=== PATIENT | male | born 1980 | race Caucasian/White ===

== ENCOUNTER → 2021-04-22 | Outpatient (CLI) | payer OTHER ==
--- NOTE | 2021-04-22 16:55 | REP ---
INDICATION: CHRONIC SINUSITIS. COMPARISON: None. TECHNIQUE: Contiguous 2 mm thick axial projection images were obtained through the paranasal sinuses. 2D sagittal and coronal reconstructions were performed. FINDINGS: The frontal sinuses are partially opacified. The frontal ethmoidal recesses are obstructed. There are multiple opacified ethmoidal air cells bilaterally. Status post partial ethmoidectomy on the left. The sphenoethmoidal recesses are obstructed. There is almost complete opacification of the sphenoid sinuses. There are large meatotomy defects bilaterally. There is marked thickening of the nasal mucosa bilaterally with almost complete obstruction of the meatotomies. There is mucoperiosteal thickening of both maxillary sinuses. There is a 3.9 cm in thickness mucous retention cyst or polyp in the left maxillary sinus. There is a 1.6 cm in thickness mucous retention cyst or polyp in the right maxillary sinus. The mastoid air cells and the external, middle and inner ears are normal. The visualized soft tissues of the face have a normal unenhanced appearance. The intraorbital contents are normal. The visualized intracranial contents are unremarkable. IMPRESSION: 1. Severe larsen sinusitis. 2. Status post left partial ethmoidectomy and bilateral meatotomy. 3. Severe rhinitis. 4. Other findings as noted. <Electronically signed by Joshua Smith > 04/22/21 [id number]
== END ==
LOC: M RAD 15:44
PROVIDERS: ATTEND Physician Assistant
DX: J32.9 Chronic sinusitis, unspecified (principal)

== ENCOUNTER → 2021-06-13 | Outpatient (CLI) | payer OTHER ==
[~2021-06-13] MED LIST: BENA25CA4 PO
== END ==
LOC: M LABSMTC 12:09
PROVIDERS: ATTEND Anesthesiology
DX: Z01.818 Encounter for other preprocedural examination (principal); Z11.52 Encounter for screening for COVID-19

== ENCOUNTER 2021-06-17 11:46 | Day surgery (SDC) | payer OTHER ==
[~2021-06-17] VITALS: Ht 185.4 cm; Wt 92.5 kg
[2021-06-17] MEDS ORDERED: PRED10TA2 (12:09)
[2021-06-17] MEDS ORDERED: fentaNYL 250 MCG/5 ML INJECTION (J3010) As Ordered ONE (12:13)
[2021-06-17] MEDS ORDERED: LIDOCAINE 2% 100MG/5ML SDV (FOR ANES.) As Ordered ONE (12:14)
[2021-06-17] MEDS ORDERED: dexameTHASONE 4 MG/ML 1ML VIAL (J1100 PER 1MG) As Ordered ONE (12:14)
[2021-06-17] MEDS ORDERED: MIDAZOLAM INJ 2MG/2ML VIAL (J2250 PER 1MG) As Ordered ONE (12:14)
[2021-06-17] MEDS ORDERED: ROCURONIUM BROMIDE 50 MG/5 ML VIAL As Ordered ONE ×3 (12:14→15:21)
[2021-06-17] MEDS ORDERED: propofoL 200 MG/20 ML VIAL As Ordered ONE (12:14)
[2021-06-17] MEDS ORDERED: ONDANSETRON 4MG/2ML VIAL As Ordered ONE (12:14)
[2021-06-17] MEDS ORDERED: LACRILUBE (AKWA TEARS) OPHTH OINT 3.5 GM As Ordered ONE (12:55)
[2021-06-17] MEDS ORDERED: COCAINE 4% 4ML NASAL SOLUTION BTL As Ordered ONE (13:01)
[2021-06-17] MEDS ORDERED: OXYMETAZOLINE 0.05% NASAL SPRAY (AFRIN) As Ordered ONE ×2 (13:01→13:54)
[2021-06-17] MEDS ORDERED: METHYLENE BLUE 0.5% (5MG/ML) 10 ML AMP (PROVAYBLUE) As Ordered ONE (13:01)
[2021-06-17] MEDS ORDERED: LIDOCAINE W/EPINEPHRINE 1% 20ML VIAL As Ordered ONE (13:01)
[2021-06-17] MEDS ORDERED: ACETAMINOPHEN 1000MG 100ML IV BTL (OFIRMEV) (J0131 PER 10MG) As Ordered ONE (13:50)
[2021-06-17] MEDS ORDERED: ePHEDrine SULFATE 25 MG/5 ML(5MG/ML) SYRINGE As Ordered ONE (13:55)
[2021-06-17] MEDS ORDERED: SUGAMMADEX SODIUM 500 MG/5 ML VIAL (BRIDION) As Ordered ONE (14:11)
[2021-06-17] MEDS ORDERED: LABETALOL 100MG/20ML VIAL As Ordered ONE (14:28)
[2021-06-17] MEDS ORDERED: LIDOCAINE 2% 5ML JELLY UROJET As Ordered ONE (15:55)
[2021-06-17] MEDS ORDERED: fentaNYL 100 MCG/2 ML INJECTION (J3010) As Ordered ONE (16:15)
[2021-06-17] MEDS ORDERED: LR 1,000 ML IV SCH ×2 (16:30)
[2021-06-17] MEDS ORDERED: ONDANSETRON 4MG/2ML VIAL IV PRN ×2 (16:30→16:35)
[2021-06-17] MEDS ORDERED: fentaNYL 100 MCG/2 ML INJECTION (J3010) IV PRN (16:30)
[2021-06-17] MEDS ORDERED: ANEXSIA, NORCO 7.5MG/325MG TABLET(HYDROCODONE/APAP) PO PRN (16:35)
[2021-06-17] MEDS: oxyCODONE 5MG TAB PO PRN ×2 (16:39→17:14)
[2021-06-17 17:00] VITALS: BP 144/80
== END 2021-06-17 17:40 | disposition home or self-care (01) ==
LOC: M SDC 11:46
PROVIDERS: ATTEND Otolaryngology
DX: J32.9 Chronic sinusitis, unspecified (principal); J34.2 Deviated nasal septum; J34.3 Hypertrophy of nasal turbinates; F17.218 Nicotine dependence, cigarettes, with other nicotine-induced disorders; F12.10 Cannabis abuse, uncomplicated
CPT/HCPCS: 30140; 30520; 31255; 31267; 31287; 87426; 88305; C9046; J0131; J1100; J2250; J2405; J3010; Q9968

== ENCOUNTER 2021-12-24 11:11 | Inpatient (IN) | payer OTHER, SELFPAY ==
[~2021-12-24] VITALS: Ht 185.4 cm; Wt 90.9 kg
[2021-12-24] MEDS: NICOTINE 21MG/24HR 1 EA TRANSDERMAL TD SCH (09:00)
[~2021-12-24 11:11] MED LIST changes: +PRED10TA2
[2021-12-24 11:42] LABS: HEMOGLOBIN 15.6 g/dl (13.5-17.5); MEAN CORPUSCULAR HEMOGLOBIN 31.6 pg (27.0-33.0); MEAN CORPUSCULAR HGB CONC 34.7 g/dl (32.0-36.5); MEAN CORPUSCULAR VOLUME 91.3 fl (80.0-96.0); PLATELET COUNT, AUTOMATED 254 10^3/uL (150-450); RED BLOOD COUNT 4.93 10^6/uL (4.30-6.10); WHITE BLOOD COUNT 9.8 10^3/uL (4.0-10.0)
[2021-12-24 12:05] LABS: AMPHETAMINES LEVEL URINE NEGATIVE (NEGATIVE); BARBITURATES URINE NEGATIVE (NEGATIVE); BENZODIAZEPINES URINE NEGATIVE (NEGATIVE); CANNABINOIDS URINE POSITIVE (NEGATIVE); COCAINE METABOLITE URINE POSITIVE (NEGATIVE); METHADONE URINE NEGATIVE (NEGATIVE); OPIATES URINE NEGATIVE (NEGATIVE); PHENCYCLIDINE URINE NEGATIVE (NEGATIVE)
[2021-12-24 12:16] LABS: RSV AMPLIFICATION NEGATIVE (NEGATIVE)
[2021-12-24 12:21] LABS: ACETAMINOPHEN LEVEL < 2.0 UG/ML (10.0-30.0); ALT/SGPT 36 U/L (12-78); BILIRUBIN,DIRECT 0.1 MG/DL (0.0-0.2); BILIRUBIN,TOTAL 0.6 MG/DL (0.2-1.0); BLOOD UREA NITROGEN 12 MG/DL (7-18); CALCIUM LEVEL 9.1 MG/DL (8.5-10.1); CARBON DIOXIDE LEVEL 24 MEQ/L (21-32); CHLORIDE LEVEL 113 MEQ/L (98-107); CREATININE FOR GFR 1.04 MG/DL (0.70-1.30); ETHYL ALCOHOL (ETHANOL) < 0.003 % (0.000-0.010); GLOMERULAR FILTRATION RATE > 60.0 (>60); GLUCOSE, FASTING 108 MG/DL (70-100); SALICYLATE LEVEL 3.3 MG/DL (5.0-30.0); SODIUM LEVEL 144 MEQ/L (136-145); THYROID STIMULATING HORMONE 0.782 uIU/ML (0.358-3.740); TOTAL PROTEIN 7.4 GM/DL (6.4-8.2)
[2021-12-24] MEDS ORDERED: APAP325T4 PO (17:12)
[2021-12-24] MEDS ORDERED: CLAR5TAB7 PO (17:12)
[2021-12-24] MEDS ORDERED: HOME MED LIST COMPLETE! XX SCH (17:15)
[2021-12-24] MEDS ORDERED: MAALOX 30 ML SUSP *UDC PO PRN (17:35)
[2021-12-24] MEDS ORDERED: MOM 30ML SUSPENSION UDC PO PRN (17:35)
[2021-12-24] MEDS ORDERED: ACETAMINOPHEN TAB 650MG DOSE (2X325MG) PO PRN (17:35)
[2021-12-24] MEDS ORDERED: traZODone 50 MG TAB PO PRN (17:35)
[2021-12-24] MEDS: diphenhydrAMINE 50MG CAP PO SCH (20:22)
[2021-12-25 06:46] VITALS: BP 120/78
[2021-12-25] MEDS: diphenhydrAMINE 50MG CAP PO SCH ×2 (08:20→20:18)
[2021-12-25] MEDS: NICOTINE 21MG/24HR 1 EA TRANSDERMAL TD SCH (08:21)
[2021-12-25] MEDS: SERTRALINE HCL 50 MG TAB PO SCH (12:50)
[2021-12-25 18:00] VITALS: BP 153/84
[2021-12-26 07:05] VITALS: BP 111/73
[2021-12-26] MEDS: diphenhydrAMINE 50MG CAP PO SCH ×2 (08:01→20:18)
[2021-12-26] MEDS: SERTRALINE HCL 50 MG TAB PO SCH (08:01)
[2021-12-26] MEDS: NICOTINE 21MG/24HR 1 EA TRANSDERMAL TD SCH (08:03)
[2021-12-26] MEDS ORDERED: diphenhydrAMINE 50MG CAP PO ONE (15:45)
[2021-12-26 18:54] VITALS: BP 131/85
[2021-12-26] MEDS: traZODone 100 MG TAB PO PRN (20:18)
[2021-12-27] MEDS: diphenhydrAMINE 50MG CAP PO SCH ×2 (05:20→20:06)
[2021-12-27 06:15] VITALS: BP 113/62
[2021-12-27] MEDS: NICOTINE 21MG/24HR 1 EA TRANSDERMAL TD SCH (08:28)
[2021-12-27] MEDS: SERTRALINE HCL 50 MG TAB PO SCH (08:28)
[2021-12-27] MEDS: LORazepam 1 MG TAB PO PRN ×2 (15:15→22:25)
[2021-12-27 18:50] VITALS: BP 139/88
[2021-12-27] MEDS: traZODone 100 MG TAB PO PRN (20:06)
[2021-12-28] MEDS: diphenhydrAMINE 50MG CAP PO SCH ×2 (05:54→20:25)
[2021-12-28 07:08] VITALS: BP 119/71
[2021-12-28] MEDS: NICOTINE 21MG/24HR 1 EA TRANSDERMAL TD SCH (08:24)
[2021-12-28] MEDS: SERTRALINE HCL 50 MG TAB PO SCH (08:24)
[2021-12-28] MEDS: LORazepam 1 MG TAB PO PRN ×2 (08:25→20:26)
[2021-12-28 17:56] VITALS: BP 140/68
[2021-12-28] MEDS: traZODone 100 MG TAB PO PRN (20:25)
[2021-12-29] MEDS: diphenhydrAMINE 50MG CAP PO SCH ×2 (05:50→20:34)
[2021-12-29 06:27] VITALS: BP 131/85
[2021-12-29] MEDS: SERTRALINE HCL 50 MG TAB PO SCH (08:37)
[2021-12-29] MEDS: NICOTINE 21MG/24HR 1 EA TRANSDERMAL TD SCH (08:38)
[2021-12-29] MEDS: LORazepam 1 MG TAB PO PRN ×2 (08:38→20:36)
[2021-12-29 18:00] VITALS: BP 158/93
[2021-12-29] MEDS: traZODone 100 MG TAB PO PRN (20:34)
[2021-12-30] MEDS: diphenhydrAMINE 50MG CAP PO SCH (05:39)
[2021-12-30 06:28] VITALS: BP 132/84
[2021-12-30] MEDS: SERTRALINE HCL 50 MG TAB PO SCH (08:19)
[2021-12-30] MEDS: NICOTINE 21MG/24HR 1 EA TRANSDERMAL TD SCH (08:19)
[2021-12-30] MEDS ORDERED: LORazepam 0.5 MG TAB PO PRN (12:40)
[2021-12-30] MEDS ORDERED: NICO21PAT TD (15:22)
[2021-12-30] MEDS ORDERED: SERT50TA29 PO (15:22)
[2021-12-30] MEDS ORDERED: ATIV1TAB10 PO (15:22)
[2021-12-30] MEDS ORDERED: TRAZ-257 PO (18:45)
== END 2021-12-30 16:24 | disposition home or self-care (01) | DRG 754 ==
LOC: M ED 11:11 → M ED INP 17:34 → M PSY 17:58
PROVIDERS: ADMIT Student in an Organized Health Care Education/Training Program; ATTEND Student in an Organized Health Care Education/Training Program
DX: F32.A Depression, unspecified (principal); R45.851 Suicidal ideations; F17.210 Nicotine dependence, cigarettes, uncomplicated; Z79.899 Other long term (current) drug therapy; M79.89 Other specified soft tissue disorders; F32.9 Major depressive disorder, single episode, unspecified

== ENCOUNTER → 2022-02-18 | Outpatient (CLI) | payer OTHER ==
[~2022-02-18] MED LIST changes: +APAP325T4 PO; +ATIV1TAB10 PO; +CLAR5TAB7 PO; +NICO21PAT TD; +SERT50TA29 PO; +TRAZ-257 PO
[2022-02-18 12:33] LABS: BASO # 0.1 10^3/uL (0.0-0.2); BASO % 0.5 % (0.0-1.0); EOS # 0.3 10^3/uL (0.0-0.5); EOS % 3.1 % (0.0-3.0); HEMATOCRIT 44.2 % (42.0-52.0); HEMOGLOBIN 14.4 g/dl (13.5-17.5); LYMPH # 2.6 10^3/uL (1.5-5.0); LYMPH % 26.8 % (24.0-44.0); MEAN CORPUSCULAR HEMOGLOBIN 30.6 pg (27.0-33.0); MEAN CORPUSCULAR HGB CONC 32.6 g/dl (32.0-36.5); MEAN CORPUSCULAR VOLUME 93.8 fl (80.0-96.0); MONO # 0.7 10^3/uL (0.0-0.8); MONO % 7.5 % (2.0-8.0); NEUTROPHILS # 6.1 10^3/uL (1.5-8.5); NEUTROPHILS % 61.8 % (36.0-66.0); PLATELET COUNT, AUTOMATED 238 10^3/uL (150-450); RED BLOOD COUNT 4.71 10^6/uL (4.30-6.10); WHITE BLOOD COUNT 9.8 10^3/uL (4.0-10.0)
[2022-02-18 13:04] LABS: ALBUMIN 3.9 GM/DL (3.2-5.2); ALT/SGPT 74 U/L (12-78); BILIRUBIN,TOTAL 0.3 MG/DL (0.2-1.0); BLOOD UREA NITROGEN 10 MG/DL (7-18); CARBON DIOXIDE LEVEL 29 MEQ/L (21-32); CHLORIDE LEVEL 106 MEQ/L (98-107); CREATININE FOR GFR 0.76 MG/DL (0.70-1.30); ERYTHROCYTE SEDIMENTATION RATE 4 mm/hr (0-15); GLOMERULAR FILTRATION RATE > 60.0 (>60); GLUCOSE, FASTING 93 MG/DL (70-100); POTASSIUM SERUM 4.2 MEQ/L (3.5-5.1); RHEUMATOID FACTOR QUANT < 10.0 IU/ML (<15.0); SODIUM LEVEL 137 MEQ/L (136-145); THYROXINE (T4) 6.9 UG/DL (4.5-12.0); TOTAL PROTEIN 6.9 GM/DL (6.4-8.2)
[2022-02-18 13:42] LABS: THYROID PEROXIDASE ANTIBODY < 28.0 U/ML (<60.0)
== END ==
LOC: M LAB 11:20
PROVIDERS: ATTEND Allergy & Immunology Allergy
DX: L50.1 Idiopathic urticaria (principal)

== ENCOUNTER → 2022-11-18 | Outpatient (CLI) | payer OTHER ==
[2022-11-18 14:42] LABS: BASO # 0.1 10^3/uL (0.0-0.2); BASO % 0.5 % (0.0-1.0); EOS # 0.3 10^3/uL (0.0-0.5); HEMATOCRIT 43.1 % (42.0-52.0); HEMOGLOBIN 14.2 g/dl (13.5-17.5); LYMPH # 2.2 10^3/uL (1.5-5.0); LYMPH % 22.7 % (24.0-44.0); MEAN CORPUSCULAR HEMOGLOBIN 30.6 pg (27.0-33.0); MEAN CORPUSCULAR HGB CONC 32.9 g/dl (32.0-36.5); MEAN CORPUSCULAR VOLUME 92.9 fl (80.0-96.0); MONO # 0.6 10^3/uL (0.0-0.8); MONO % 5.9 % (2.0-8.0); NEUTROPHILS # 6.5 10^3/uL (1.5-8.5); NEUTROPHILS % 67.7 % (36.0-66.0); PLATELET COUNT, AUTOMATED 247 10^3/uL (150-450); RED BLOOD COUNT 4.64 10^6/uL (4.30-6.10); WHITE BLOOD COUNT 9.6 10^3/uL (4.0-10.0)
[2022-11-18 15:13] LABS: APPEARANCE, URINE HAZY (CLEAR); BACTERIA, URINE AUTO NEGATIVE (NEGATIVE); BILIRUBIN, URINE AUTO NEGATIVE (NEGATIVE); BLOOD, URINE BLOOD NEGATIVE (NEGATIVE); COLOR, URINE AMBER (YELLOW); GLUCOSE, URINE (UA) AUTO NEGATIVE (NEGATIVE); KETONE, URINE AUTO NEGATIVE (NEGATIVE); LEUKOCYTE ESTERASE, URINE AUTO NEGATIVE (NEGATIVE); MUCUS, URINE SMALL (NEGATIVE); NITRITE, URINE AUTO NEGATIVE (NEGATIVE); PROTEIN, URINE AUTO NEGATIVE (NEGATIVE); RBC, URINE AUTO 3 /HPF (0-3); SPECIFIC GRAVITY URINE AUTO 1.025 (1.002-1.035); SQUAMOUS EPITHELIAL CELL UR AU 0 /HPF (0-6); UROBILINOGEN, URINE AUTO 0.2 mg/dL (0.0-2.0); WBC, URINE AUTO 1 /HPF (0-3)
[2022-11-18 15:36] LABS: ERYTHROCYTE SEDIMENTATION RATE 18 mm/hr (0-15)
[2022-11-18 15:41] LABS: URIC ACID 4.1 MG/DL (3.7-9.2)
[2022-11-18 15:45] LABS: ALBUMIN 4.2 G/DL (3.2-5.2); ALKALINE PHOSPHATASE 64 U/L (46-116); ALT/SGPT 28 U/L (7.0-40); AST/SGOT 18 U/L (<34); BILIRUBIN,TOTAL 0.4 MG/DL (0.3-1.2); BLOOD UREA NITROGEN 11 MG/DL (9-23); CALCIUM LEVEL 8.7 MG/DL (8.5-10.1); CARBON DIOXIDE LEVEL 27 MMOL/L (20-31); CHLORIDE LEVEL 108 MMOL/L (98-107); CREATININE FOR GFR 0.77 MG/DL (0.70-1.30); GLOMERULAR FILTRATION RATE > 60.0 (>60); GLUCOSE, FASTING 96 MG/DL (60-100); POTASSIUM SERUM 4.5 MMOL/L (3.5-5.1); SODIUM LEVEL 140 MMOL/L (136-145)
[2022-11-18 16:01] LABS: HEPATITIS B SURFACE ANTIGEN NEGATIVE (NEGATIVE)
[2022-11-18 16:14] LABS: HIV 1&2 SCREEN NEGATIVE (NEGATIVE)
== END ==
LOC: M PLALAB 10:15
PROVIDERS: ATTEND Internal Medicine Infectious Disease
DX: M25.50 Pain in unspecified joint (principal); R11.0 Nausea

== ENCOUNTER → 2023-06-11 | Outpatient (REF) | payer OTHER ==
[2023-06-11 12:00] LABS: BASO # 0.1 10^3/uL (0.0-0.2); BASO % 0.6 % (0.0-1.0); EOS # 0.4 10^3/uL (0.0-0.5); EOS % 3.9 % (0.0-3.0); HEMATOCRIT 46.6 % (42.0-52.0); HEMOGLOBIN 15.5 g/dl (13.5-17.5); LYMPH # 2.1 10^3/uL (1.5-5.0); LYMPH % 19.1 % (24.0-44.0); MEAN CORPUSCULAR HEMOGLOBIN 30.3 pg (27.0-33.0); MEAN CORPUSCULAR HGB CONC 33.3 g/dl (32.0-36.5); MONO # 0.7 10^3/uL (0.0-0.8); MONO % 6.2 % (2.0-8.0); NEUTROPHILS # 7.6 10^3/uL (1.5-8.5); NEUTROPHILS % 69.9 % (36.0-66.0); PLATELET COUNT, AUTOMATED 259 10^3/uL (150-450); RED BLOOD COUNT 5.12 10^6/uL (4.30-6.10); WHITE BLOOD COUNT 10.9 10^3/uL (4.0-10.0)
[2023-06-11 12:32] LABS: ERYTHROCYTE SEDIMENTATION RATE 16 mm/hr (0-15)
[2023-06-11 14:57] LABS: URIC ACID 4.5 MG/DL (3.7-9.2)
[2023-06-11 14:59] LABS: C REACTIVE PROTEIN QUANTITATIV < 0.40 MG/DL (<1.0)
[2023-06-11 15:00] LABS: ALBUMIN 4.2 G/DL (3.2-5.2); ALKALINE PHOSPHATASE 62 U/L (46-116); ALT/SGPT 48 U/L (7.0-40); AST/SGOT 24 U/L (<34); BILIRUBIN,TOTAL 0.5 MG/DL (0.3-1.2); BLOOD UREA NITROGEN 15 MG/DL (9-23); CALCIUM LEVEL 9.3 MG/DL (8.5-10.1); CARBON DIOXIDE LEVEL 28 MMOL/L (20-31); CHLORIDE LEVEL 107 MMOL/L (98-107); CREATININE FOR GFR 0.77 MG/DL (0.70-1.30); GLOMERULAR FILTRATION RATE > 60.0 (>60); GLUCOSE, FASTING 94 MG/DL (60-100); POTASSIUM SERUM 4.4 MMOL/L (3.5-5.1); SODIUM LEVEL 139 MMOL/L (136-145); TOTAL PROTEIN 7.2 G/DL (5.7-8.2)
[2023-06-11 15:01] LABS: COMPLEMENT C4 38.4 MG/DL (12-36)
[2023-06-11 15:03] LABS: TOTAL 25(OH) VITAMIN D 21.8 NG/ML (20.0-100.0)
[2023-06-11 15:41] LABS: HEPATITIS C VIRUS ABY INDEX 0.27 INDEX (<0.8)
== END ==
LOC: M SFHCRHEU 09:27
PROVIDERS: ATTEND Internal Medicine Rheumatology
DX: M25.50 Pain in unspecified joint (principal); L40.8 Other psoriasis; L50.9 Urticaria, unspecified; Z72.0 Tobacco use